=== PATIENT | female | born 1985 | race Caucasian/White ===

== ENCOUNTER 2023-10-07 12:33 | Outpatient (OUT) | payer BC, SELFPAY | END 2023-10-07 12:34 | disposition home or self-care (01) | LOC: SLEEP 12:33 | PROVIDERS: Family Provider Family Medicine; PCP Family Medicine; Visit Provider Family Medicine | DX: G47.33 Obstructive sleep apnea (adult) (pediatric) (principal) | CPT/HCPCS: 95806 ==